=== PATIENT | male | born 1955 | race African-American/Black ===

== ENCOUNTER 2022-07-16 09:14 | Day surgery (SDC) | payer OTHER ==
[2022-07-10 12:42] VITALS: BMI 21.7
[2022-07-16] MEDS ORDERED: PHENYLEPHRINE 2.5% OPHTH SOLN 15 ML BOTTLE ONE (10:07)
[2022-07-16] MEDS ORDERED: KETOROLAC TROMETHAMINE 0.5% EYE DROP 1 DROP DROPS ONE (10:07)
[2022-07-16] MEDS ORDERED: OFLOXACIN 0.3% OPHTHALMIC SOLUTION 5 ML BOTTLE ONE (10:07)
[2022-07-16] MEDS ORDERED: TROPICAMIDE 1% OPHTH SOLN 15 ML BOTTLE ONE (10:07)
[2022-07-16] MEDS ORDERED: CYCLOPENTOLATE HCL 1% OPHTH SOLN 2 ML BOTTLE ONE (10:08)
[2022-07-16] MEDS ORDERED: BACITRACIN/POLYMYXIN OPH OINT 3.5 GM TUBE ONE (10:36)
[2022-07-16] MEDS ORDERED: POVIDONE-IODINE 5% OPHTHALMIC PREP 30 ML SOLUTION ONE (10:37)
[2022-07-16] MEDS ORDERED: TETRACAINE 0.5% OPHTH SOLN 2 ML BOTTLE ONE (10:37)
[2022-07-16] MEDS ORDERED: BETAXOLOL HCL 0.25% OPHTHALMIC 10 ML DROPSBTL ONE (10:37)
[2022-07-16] MEDS ORDERED: EPI-SHUGARCAINE (EPINEPHRINE 0.025% & LIDOCAINE-PF 0.75%) 4ML ONE (10:37)
[2022-07-16] MEDS ORDERED: NEO/POLYMYX B SULF/DEXAMETH OPHTHALMIC 5ML BOTTLE ONE (10:37)
[2022-07-16] MEDS: CYCLOPENTOLATE HCL 1% OPHTH SOLN 2 ML BOTTLE OS SCH ×3 (10:40→10:50)
[2022-07-16] MEDS: KETOROLAC TROMETHAMINE 0.5% EYE DROP 1 DROP DROPS OS SCH ×3 (10:40→10:50)
[2022-07-16] MEDS: OFLOXACIN 0.3% OPHTHALMIC SOLUTION 5 ML BOTTLE OS SCH ×3 (10:40→10:50)
[2022-07-16] MEDS: PHENYLEPHRINE 2.5% OPHTH SOLN 15 ML BOTTLE OS SCH ×3 (10:40→10:50)
[2022-07-16] MEDS: TROPICAMIDE 1% OPHTH SOLN 15 ML BOTTLE OS SCH ×3 (10:40→10:50)
[2022-07-16] MEDS ORDERED: MIDAZOLAM HCL 2 MG/2 ML SINGLE DOSE VIAL ONE (11:53)
[2022-07-16] MEDS ORDERED: ONDANSETRON 4 MG/2 ML VIAL ONE (11:53)
[2022-07-16] MEDS ORDERED: ACETAMINOPHEN 325 MG TABLET (FP) PO PRN ×2 (12:29→13:06)
[2022-07-16 12:54] VITALS: RESP 18; TEMP 97.8
[2022-07-16 13:27] VITALS: BP 124/74; PULSE 58
== END 2022-07-16 16:00 | disposition home or self-care (01) ==
LOC: FASU 09:14
PROVIDERS: ATTEND Ophthalmology
PROC: 08RK3JZ Replacement of Left Lens with Synthetic Substitute, Percutaneous Approach (ICD-10-PCS; principal; 2022-07-16 12:02)
DX: H25.89 Other age-related cataract (principal)
CPT/HCPCS: 66984; V2632; 82962

== ENCOUNTER 2022-07-30 09:14 | Day surgery (SDC) | payer OTHER ==
[2022-07-10 12:53] VITALS: BMI 21.7
[2022-07-30] MEDS ORDERED: PHENYLEPHRINE 2.5% OPHTH SOLN 15 ML BOTTLE ONE (09:34)
[2022-07-30] MEDS ORDERED: OFLOXACIN 0.3% OPHTHALMIC SOLUTION 5 ML BOTTLE ONE (09:34)
[2022-07-30] MEDS ORDERED: CYCLOPENTOLATE HCL 1% OPHTH SOLN 2 ML BOTTLE ONE (09:34)
[2022-07-30] MEDS ORDERED: KETOROLAC TROMETHAMINE 0.5% EYE DROP 1 DROP DROPS ONE (09:34)
[2022-07-30] MEDS ORDERED: TROPICAMIDE 1% OPHTH SOLN 15 ML BOTTLE ONE (09:34)
[2022-07-30] MEDS: PHENYLEPHRINE 2.5% OPHTH SOLN 15 ML BOTTLE OD SCH ×3 (09:50→10:00)
[2022-07-30] MEDS: OFLOXACIN 0.3% OPHTHALMIC SOLUTION 5 ML BOTTLE OD SCH ×3 (09:50→10:00)
[2022-07-30] MEDS: KETOROLAC TROMETHAMINE 0.5% EYE DROP 1 DROP DROPS OD SCH ×3 (09:50→10:00)
[2022-07-30] MEDS: TROPICAMIDE 1% OPHTH SOLN 15 ML BOTTLE OD SCH ×3 (09:50→10:00)
[2022-07-30] MEDS: CYCLOPENTOLATE HCL 1% OPHTH SOLN 2 ML BOTTLE OD SCH ×3 (09:50→10:00)
[2022-07-30 09:55] VITALS: RESP 16
[2022-07-30] MEDS ORDERED: EPINEPHrine/PF 1 MG/1 ML (1:1,000) AMPULE ONE (10:40)
[2022-07-30] MEDS ORDERED: TETRACAINE 0.5% OPHTH SOLN 2 ML BOTTLE ONE (10:41)
[2022-07-30] MEDS ORDERED: POVIDONE-IODINE 5% OPHTHALMIC PREP 30 ML SOLUTION ONE (10:41)
[2022-07-30] MEDS ORDERED: EPI-SHUGARCAINE (EPINEPHRINE 0.025% & LIDOCAINE-PF 0.75%) 4ML ONE (10:41)
[2022-07-30] MEDS ORDERED: BACITRACIN/POLYMYXIN OPH OINT 3.5 GM TUBE ONE (10:41)
[2022-07-30] MEDS ORDERED: NEO/POLYMYX B SULF/DEXAMETH OPHTHALMIC 5ML BOTTLE ONE (10:41)
[2022-07-30] MEDS ORDERED: BETAXOLOL HCL 0.25% OPHTHALMIC 10 ML DROPSBTL ONE (10:41)
[2022-07-30] MEDS ORDERED: MIDAZOLAM HCL 2 MG/2 ML SINGLE DOSE VIAL ONE ×2 (12:33→12:59)
[2022-07-30] MEDS ORDERED: ONDANSETRON 4 MG/2 ML VIAL ONE (12:43)
[2022-07-30] MEDS ORDERED: ACETAMINOPHEN 325 MG TABLET (FP) PO PRN (13:29)
[2022-07-30 13:31] VITALS: TEMP 98.3
[2022-07-30 14:01] VITALS: BP 124/70; PULSE 62
== END 2022-07-30 14:15 | disposition home or self-care (01) ==
LOC: FASU 09:14
PROVIDERS: ATTEND Ophthalmology
PROC: 08RJ3JZ Replacement of Right Lens with Synthetic Substitute, Percutaneous Approach (ICD-10-PCS; principal; 2022-07-30 12:53)
DX: H26.9 Unspecified cataract (principal)
CPT/HCPCS: 66984; V2632; 82962